=== PATIENT | male | born 1985 | race Caucasian/White ===

== ENCOUNTER 2023-02-21 09:19 | Emergency (ER) | payer BC, SELFPAY ==
[2023-02-21 09:26] VITALS: BP 152/85; PULSE 80; RESP 18; TEMP 37; O2SAT 99
--- NOTE | 2023-02-21 09:42 | ED.URI ---
HPI - URI/Sore Throat General Chief Complaint: Upper Respiratory Infection Stated Complaint: Sore Throat Source: patient and RN notes reviewed History of Present Illness HPI Narrative: 37 yo M presents to urgent care with complaints of a sore throat since Friday. Pt states it started with his ears popping when he swallowed. Pt states he continues to have ear pressure and popping but denies any ear pain. Denies any fevers, chills, vomiting, or other complaints. Pt's daughter had strep throat 2 weeks ago. Related Data Allergies Allergy/AdvReac Type Severity Reaction Status Date / Time No Known Allergies Allergy Unverified 10/11/18 09:05 Review of Systems Review of Systems: CONSTITUTIONAL: Denies fever, chills, or sweats. EYES: Denies visual changes, redness, or discharge. ENT: Sore throat and bilateral ear popping and pressure CARDIOVASCULAR: Denies chest pain, palpitations, or edema. RESPIRATORY: Denies cough or dyspnea. GASTROINTESTINAL: Denies abdominal pain, nausea, vomiting, or diarrhea. GENITOURINARY: Denies dysuria or hematuria. SKIN: Denies rash or itching. MUSCULOSKELETAL: Denies back pain, joint pain, or myalgia. NEUROLOGIC: Denies headache, numbness, or weakness. Pertinent positives per HPI. PMFSH Comments At the time of my signature, I reviewed and agree with the nursing past medical, surgical, social, and family history. There is no relevant family history pertinent to the patient complaint. Exam Narrative: GENERAL: This is a well-nourished, well-developed patient, in no apparent distress. HEAD: normocephalic, atraumatic. EYES: Sclera clear/white. Vision is grossly intact. EARS: External ears normal, auditory canals clear and without drainage, TMs normal without perforation. Hearing grossly intact. NOSE: External nose normal with no obvious nasal discharge, nares without redness, no rhinorrhea. THROAT: Mucous membranes moist, posterior pharynx are erythremic. Tonsils are bilaterally 2+. NECK: Neck supple, non-tender without lymphadenopathy, masses or thyromegaly. CARDIOVASCULAR: Regular rate RESPIRATORY: No respiratory distress SKIN: warm, intact with no suspicious lesions or rash, good texture and turgor. NEURO: awake, alert, and oriented to person, place and time. There were no obvious focal neurologic abnormalities. Course Course Level of Care: Express Care Visit Vital Signs Vital signs: Vital Signs Temperature 98.6 F 02/21/23 09:26 Pulse Rate 80 02/21/23 09:26 Respiratory Rate 18 02/21/23 09:26 Blood Pressure 152/85 H 02/21/23 09:26 Pulse Oximetry 99 02/21/23 09:26 Oxygen Delivery Room Air 02/21/23 09:26 Temperature 98.6 F 02/21/23 09:26 Pulse Rate 80 02/21/23 09:26 Respiratory Rate 18 02/21/23 09:26 Blood Pressure 152/85 H 02/21/23 09:26 Pulse Oximetry 99 02/21/23 09:26 Oxygen Delivery Room Air 02/21/23 09:26 reviewed. MDM - URI/Sore Throat MDM Narrative Medical decision making narrative: After 24 hours on antibiotics throw tooth brush away and start using a new one. Increase your Vitamin C. Do not share drinks. Take Motrin alternating with Tylenol for pain and/or fever alternating every 4 hours. Increase fluids, avoid caffeine. Take a probiotic daily or eat a low sugar yogurt while taking the antibiotic. Follow up with Primary provider if not getting better this week Differential Diagnosis Differential diagnosis: Likely upper respiratory infection, viral infection and pharyngitis Lab Data Attestation: I reviewed the patient's lab results. Critical Care Time Critical Care Time Critical Care Time: No Discharge Plan Discharge Clinical Impression: Pharyngitis Qualifiers: Pharyngitis/tonsillitis etiology: streptococcus Qualified Code(s): J02.0 - Streptococcal pharyngitis Patient Disposition: Home, Self-Care Condition: Stable Instructions: Antibiotic Form, Strep Throat (DC) Additional Instructions: After 24
== END 2023-02-21 09:45 | disposition home or self-care (01) ==
PROVIDERS: Emergency Provider Nurse Practitioner Family
DX: J02.0 Streptococcal pharyngitis (principal)
CPT/HCPCS: 87880; 99213; G0463

== ENCOUNTER 2023-11-12 09:10 | Emergency (ER) | payer BC, SELFPAY ==
[2023-11-12 09:15] VITALS: BP 143/77; PULSE 79; RESP 16; TEMP 37; O2SAT 99
--- NOTE | 2023-11-12 09:37 | ED.URI ---
HPI - URI/Sore Throat General Chief Complaint: Upper Respiratory Infection Stated Complaint: Fever/Sore Throat Time Seen by Provider: 11/12/23 09:38 History of Present Illness HPI Narrative: 38-year-old male presented for complaint of sore throat and fever. Onset yesterday morning. Endorses temperature last night up to 101. Denies any associated symptoms. Denies sick contacts. He has taken ibuprofen. Related Data Allergies Allergy/AdvReac Type Severity Reaction Status Date / Time No Known Allergies Allergy Verified 11/12/23 09:29 Review of Systems Review of Systems: CONSTITUTIONAL: reports fever, chills EYES: Denies visual changes, redness, or discharge. ENT: Reports sore throat Denies rhinorrhea, congestion, or otalgia. CARDIOVASCULAR: Denies chest pain, palpitations, or edema. RESPIRATORY: Denies dyspnea. GASTROINTESTINAL: Denies abdominal pain, nausea, vomiting, or diarrhea. SKIN: Denies rash, itching, or wounds. MUSCULOSKELETAL: Denies back pain, joint pain, or myalgia. NEUROLOGIC: Denies headache Exam Narrative: GENERAL: well-appearing, no acute distress. EYES: conjunctivae clear ENT: Mucous membranes moist. TMs pearly nixon with normal light reflex bilaterally; no tragal tenderness. Oropharynx erythematous, Tonsils enlarged 2+ with exudate. No drooling, no hoarseness, no trismus, uvula midline. No tripod positioning, hot potato voice, or soft palate swelling. NECK: Supple. No lymphadenopathy CHEST: Clear to auscultation, breath sounds equal. No respiratory distress, speaks in full sentences. HEART: Regular rate and rhythm. No murmur heard. SKIN: Warm, dry, no rash. NEURO: Alert and oriented x3. Course Course Emergency Course: Patient is aware of diagnosis, understands and agrees to treatment plan. Anticipatory guidance given. Patient agrees to follow-up as directed and is aware of reasons to seek care at the emergency department. Portions of this record may have been created with voice recognition software Level of Care: Express Care Visit Vital Signs Vital signs: Vital Signs Temperature 98.6 F 11/12/23 09:15 Pulse Rate 79 11/12/23 09:15 Respiratory Rate 16 11/12/23 09:15 Blood Pressure 143/77 H 11/12/23 09:15 Pulse Oximetry 99 11/12/23 09:15 Oxygen Delivery Room Air 04/03/24 09:15 Temperature 98.6 F 11/12/23 09:15 Pulse Rate 79 11/12/23 09:15 Respiratory Rate 16 11/12/23 09:15 Blood Pressure 143/77 H 11/12/23 09:15 Pulse Oximetry 99 11/12/23 09:15 Oxygen Delivery Room Air 11/12/23 09:15 MDM - URI/Sore Throat MDM Narrative Medical decision making narrative: Neg strep result reviewed with pt. Will treat based on PE and CC. Advise supportive treatments. Patient is appropriate for outpatient treatment and follow-up. Differential Diagnosis Differential diagnosis: Likely upper respiratory infection, viral infection and pharyngitis Discharge Plan Discharge Clinical Impression: Exudative tonsillitis Patient Disposition: Home, Self-Care Condition: Stable Instructions: Antibiotic Form, Strep Throat (ED) Additional Instructions: negative strep result today. You will be treated based on the exam in your symptoms. - Take the antibiotic as directed. Fever and sore throat typically resolve within one to three days. Most patients can return to work, after 12 to 24 hours of antibiotic therapy, provided you are fever free and otherwise well. -Eat and drink things that are easy to swallow, like soft foods, cool liquids, tea with honey, or popsicles . -Salt water gargles and/or may use topical anesthetic ( Chloraseptic spray) or lozenges to relieve dryness or throat pain -Alternate Tylenol and ibuprofen as needed for pain and fever as directed. -Frequent hand washing or hand pier runner is one of the best ways to prevent spread of infection. Throw away the toothbrush after 24hours of antibiotic. -Follow up with primary care prov
== END 2023-11-12 09:45 | disposition home or self-care (01) ==
PROVIDERS: Emergency Provider Nurse Practitioner Family
DX: J03.90 Acute tonsillitis, unspecified (principal)
CPT/HCPCS: 87081; 87880; 99213; G0463